=== PATIENT | male | born 1960 | race Caucasian/White ===

== ENCOUNTER 2017-01-26 08:30 | Day surgery (SDC) | payer OTHER ==
[2017-01-21 15:13] LABS: BASOPHILS 0.4 %; BASOPHILS ABSOLUTE 0.03 10/3/uL (0.0-0.16); EOSINOPHILS 3.2 %; EOSINOPHILS ABSOLUTE 0.22 10/3/uL (0.0-0.53); HEMATOCRIT 43.6 % (40.0-51.0); HEMOGLOBIN 15.1 g/dL (13.6-17.8); IMMATURE GRANULOCYTES 0.1 %; IMMATURE GRANULOCYTES ABSOLUTE 0.01 10/3/uL (0.0-0.11); LYMPHOCYTES 51.9 %; LYMPHOCYTES ABSOLUTE 3.62 10/3/uL (0.67-4.30); MANUAL DIFF NO %; MEAN CORPUS HGB CONC 34.6 g/dL (32.0-36.0); MEAN CORPUSCULAR VOLUME 89.5 fL (80-100); MONOCYTES 5.5 %; MONOCYTES ABSOLUTE 0.38 10/3/uL (0.21-1.20); NEUTROPHILS 38.9 %; NEUTROPHILS ABSOLUTE 2.71 10/3/uL (2.02-8.40); PLATELET COUNT 240 10/3/uL (150-400); RBC DISTRIBUTION WIDTH 12.3 % (12.0-16.0); RED CELL COUNT 4.87 10/6/uL (4.7-6.1)
[2017-01-21 15:20] LABS: INTERNATIONAL NORMAL RATI 1.1 UNITS (-); PROTIME (NOT ORD) 14.2 SEC (12.0-14.5)
[2017-01-21 15:21] LABS: PARTIAL THROMBO TIME 31.1 SEC (22.5-37.2)
[2017-01-22 11:24] LABS: BUN (BLOOD UREA NITROGEN) 20 MG/DL (6-23); CALCIUM, SERUM 8.7 MG/DL (8.5-10.4); CHLORIDE, SERUM 107 MMOL/L (96-112); CO2 (CARBON DIOXIDE) 27 MMOL/L (24-34); CREATININE 1.26 MG/DL (0.70-1.30); GFR AFRICAN AMERICAN 72 ML/MIN (>=60); GFR NON AFRICAN AMERICAN 62 ML/MIN (>=60); GLUCOSE, SERUM 122 MG/DL (60-99); POTASSIUM, SERUM 4.4 MMOL/L (3.5-5.3); SODIUM, SERUM 142 MMOL/L (135-148)
--- NOTE | ~2017-01-26 | OP ---
Record Of Operation [facility] [address] [place]. [address] NAME: EMANI MOSES : 56 STATUS : [facility]#: [id number] AGE: 56 ADM/REG DATE : 01/26/17 MR#: [id number] REPORT SERV DATE: 01/27/17 DICTATED BY: EH BISHOP DATE: 01/27/17 REPORT STATUS : Draft TRANSCRIBED BY: MODBoris DATE: 01/27/17 DATE OF PROCEDURE: 01/26/2017 PREOPERATIVE DIAGNOSIS: Bilateral cervical adenopathy, right greater than left side. POSTOPERATIVE DIAGNOSIS: Bilateral cervical adenopathy, right greater than left side. PROCEDURE PERFORMED: Excisional biopsy of deep cervical lymph node, right level 2 of the neck. INDICATIONS AND SIGNIFICANT HISTORY: The patient is a 56-year-old male with significant history of multiple lymph nodes enlarging over the course of the last several months. Treatment with antibiotic therapy did not allow resolution of these lymph nodes, and the patient was felt to benefit from excisional biopsy to evaluate for the possibility of a nonmalignant process. OPERATIVE PROCEDURE AND FINDINGS: After informed consent was obtained, the patient was brought to the operating room and placed on the operating table in the supine position at which point general endotracheal anesthesia was induced by the Anesthesia Service, and the right neck was prepped and draped in standard sterile fashion. His first largest palpable lymph node was in the right level 2 of the neck just deep to the sternocleidomastoid muscle on the right side. This was felt to be a good candidate for biopsy. After prepping and draping the skin in a standard sterile fashion, a #15 blade scalpel was used to make a skin incision through a natural skin crease,, and subplatysmal flaps were elevated superiorly and inferiorly with blunt dissection. This exposed the lymph node embedded in an area of fatty infiltration. The lymph node was then removed with a combination of sharp and blunt dissection and was passed to Pathology for flow cytometry and for lymph node workup. The patient had control of any bleeding within the depths of the wound. Closure of the wound with deep Vicryl suture followed by closure of the skin with Prolene and application of topical Steri-Strips. The patient was then awoken from anesthesia and taken to the postanesthesia care unit in a satisfactory condition. COMPLICATIONS: None. ESTIMATED BLOOD LOSS: Less than 5 mL. IV FLUIDS: Per Anesthesia. DLA/JOSELYN Eh Bishop M.D. / [id number] Record Of Operation [address] [address] NAME: EMANI MOSES : 56 STATUS : [facility] PAT#: [id number] AGE: 56 ADM/REG DATE : 01/26/17 MR#: [id number] REPORT SERV DATE: 01/27/17 DICTATED BY: EH BISHOP. DATE: 01/27/17 REPORT STATUS : Draft TRANSCRIBED BY: JOSELYN DATE: 01/27/17 CC: Sanjay Cortez M.D.
[~2017-01-26 08:30] MED LIST: FLEX PO; METHOC750B PO; MOBIC7.5 PO; NEXIUM40 PO; NORCO1 TAB PO; TYLENOL ARTH650 MG PO
== END 2017-01-26 13:50 | disposition home or self-care (01) ==
LOC: SDC 08:30
PROVIDERS: Otolaryngology
PROC: 07B10ZX Excision of Right Neck Lymphatic, Open Approach, Diagnostic (ICD-10-PCS; 2017-01-26)
PROC: 07B20ZX Excision of Left Neck Lymphatic, Open Approach, Diagnostic (ICD-10-PCS; principal; 2017-01-26 09:45)
DX: C91.10 Chronic lymphocytic leukemia of B-cell type not having achieved remission (principal); K21.9 Gastro-esophageal reflux disease without esophagitis; K44.9 Diaphragmatic hernia without obstruction or gangrene; Z87.891 Personal history of nicotine dependence; Z87.442 Personal history of urinary calculi; Z90.89 Acquired absence of other organs; Z79.899 Other long term (current) drug therapy; Z98.890 Other specified postprocedural states
CPT/HCPCS: 80048; 85025; 85610; 85730; 88307; 88342; 93005; A9270-GY; J0690; J2250; J2370; J2405; J2710; J3010